=== PATIENT | female | born 1970 | race Caucasian/White ===

== ENCOUNTER 2017-01-22 00:55 | Emergency (ER) | payer BC ==
[2017-01-22] MEDS ORDERED: valACYclovir 1,000 MG Tab PO ONE (00:58)
[2017-01-22] MEDS ORDERED: Acetaminophen/HYDROcodone 325-10 MG Tab PO ONE (00:59)
[2017-01-22] MEDS ORDERED: Ketorolac 30 MG/ML SDV IM ONE (00:59)
--- NOTE | 2017-01-22 01:07 | EDM.PDOC ---
ED HPI GENERAL MEDICAL PROBLEM - General Chief Complaint: Skin Complaint Stated Complaint: shingles outbreak Time Seen by Provider: 01/22/17 00:56 Source of Information: Reports: Patient History Limitations: Reports: No Limitations - History of Present Illness INITIAL COMMENTS - FREE TEXT/NARRATIVE: Patient reports pain to the lower right back around to the right front stomach. The pain started nearly 1 week ago and a rash broke out today in the same general area as the pain she was previously experiencing. No rash to the left side and current rash is only in 1 dermatome. She did have varicella as a child. She also indicates that she did have a small rash on her right ear, but this is gone and she denies any pain to the face at all. She describes the pain as sharp and throbbing and does cause her to become nauseated. She has not taken any medications prior to coming in. Denies any chest pain, SOB, LOC, denies any problems with urinary or bowels, no blood in urine or stool. No other complaints today. Onset: Gradual Duration: Getting Worse Location: Reports: Abdomen, Back Quality: Reports: Burning, Sharp Severity: Moderate Improves with: Reports: None Worsens with: Reports: None Associated Symptoms: Reports: Rash - Related Data Allergies Allergy/AdvReac Type Severity Reaction Status Date / Time Sulfa (Sulfonamide Allergy Itching Verified 01/22/17 01:11 Antibiotics) Home Meds: Home Meds . [No Known Home Meds] 01/22/17 [History] ED ROS GENERAL - Review of Systems Review Of Systems: See Below Constitutional: Reports: No Symptoms HEENT: Reports: No Symptoms Respiratory: Reports: No Symptoms Cardiovascular: Reports: No Symptoms Endocrine: Reports: No Symptoms GI/Abdominal: Reports: Nausea (from the severe pain) : Reports: No Symptoms Musculoskeletal: Reports: No Symptoms Skin: Reports: Rash, Erythema, Lesions Neurological: Reports: No Symptoms Psychiatric: Reports: No Symptoms Hematologic/Lymphatic: Reports: No Symptoms Immunologic: Reports: No Symptoms ED EXAM, SKIN/RASH Exam: See Below Exam Limited By: No Limitations General Appearance: Alert, WD/WN, Mild Distress Eye Exam: Bilateral Eye: EOMI, PERRL Throat/Mouth: Normal Inspection, Normal Oropharynx Head: Atraumatic, Normocephalic Neck: Normal Inspection Respiratory/Chest: No Respiratory Distress, Lungs Clear, Normal Breath Sounds Cardiovascular: Normal Peripheral Pulses, Regular Rate, Rhythm GI/Abdominal: Normal Bowel Sounds Extremities: Normal Inspection, Normal Capillary Refill Neurological: Alert, Oriented, CN II-XII Intact Skin: Rash (lower lateral back and abdomen, right side) Characteristics: Maculopapular Associated features: Warmth Lymphatic: No Adenopathy Course - Orders/Labs/Meds Meds: Medications Discontinued Medications Generic Name Dose Route Start Last Admin Trade Name Lanny PRN Reason Stop Dose Admin Hydrocodone Bitart/Acetaminophen 1 tab 01/22/17 00:59 Fisher 325-10 Mg PO 01/22/17 01:00 ONETIME ONE Ketorolac Tromethamine 30 mg 01/22/17 00:59 Toradol IM 01/22/17 01:00 ONETIME ONE Valacyclovir HCl 1,000 mg 01/22/17 00:58 Valtrex PO 01/22/17 00:59 ONETIME ONE Departure - Departure Time of Disposition: 01:14 Disposition: Home, Self-Care 01 Condition: Good Clinical Impression: Shingles rash - Discharge Information Instructions: Shingles, [id number], Contact Precautions, [id number] Additional Instructions: Complete the entire course of valtrex. This will reduce the half-way after effects of the inflammation of the nerves caused by the virus. Take your pain medications regularly and drink plenty of water as these can constipate you. Follow up with your primary doctor as needed for symptom management. Symptoms can last for several months or longer. Continue to monitor. Please read the information we gave you regarding the virus, and contact precautions to minimize the spread of this disease. Please call us with any questions or concerns. - Problem List & Annotations (1) Shingles rash SNOMED Code(s): 5591964 Code(s): B02.9 - ZOSTER WITHOUT COMPLICATIONS Status: Acute Priority: Low Qualifiers: Herpes zoster complications: without complications Qualified Code(s): B02.9 - Zoster without complications - Problem List Review Problem List Initiated/Reviewed/Updated: Yes - Assessment/Plan Assessment:: herpes zoster Plan: Complete the entire course of valtrex. This will reduce the buttermaker after effects of the inflammation of the nerves caused by the virus. Take your pain medications regularly and drink plenty of water as these can constipate you. Follow up with your primary doctor as needed for symptom management. Symptoms can last for several months or longer. Continue to monitor. Please read the information we gave you regarding the virus, and contact precautions to minimize the spread of this disease. Please call us with any questions or concerns.
[2017-01-22] MEDS ORDERED: Take Home: Acetaminophen/HYDROcodone 325-10 MG, 5 Tab Pack PO ONE (01:17)
== END 2017-01-22 01:30 | disposition home or self-care (01) ==
LOC: VM.ED 00:55
DX: B02.9 Zoster without complications (principal); Z88.2 Allergy status to sulfonamides
CPT/HCPCS: 96372; 99282; A9270; J1885